=== PATIENT | male | born 1980 | race Hispanic/Latino ===

== ENCOUNTER → 2020-09-24 | Day surgery (SDC) | payer OTHER, SELFPAY ==
[2020-09-21 13:16] LABS: BASOPHILS % 0.4 % (0.0-1.0); EOSINOPHILS # (AUTO) 0.3 (0.0-0.4); EOSINOPHILS % 3.1 % (0.0-6.0); HEMATOCRIT 41.7 % (38.2-49.6); HEMOGLOBIN 13.3 g/dL (14.0-18.0); LYMPHOCYTES # (AUTO) 2.6 (1.0-3.2); LYMPHOCYTES % 30.7 % (18.0-39.1); MEAN CORPUSCULAR HEMOGLOBIN 27.3 pg (28-32); MEAN CORPUSCULAR HGB CONC 31.9 g/dL (31-35); MEAN CORPUSCULAR VOLUME 85.6 fL (81-99); MONOCYTES # (AUTO) 0.9 (0.2-0.8); MONOCYTES % 10.7 % (4.4-11.3); NEUTROPHILS # (AUTO) 4.6 (2.1-6.9); NEUTROPHILS % 54.7 % (38.7-80.0); PLATELET COUNT 340 x10e3/uL (140-360); RED BLOOD COUNT 4.87 x10e6/uL (4.3-5.7); RED CELL DISTRIBUTION WIDTH 14.2 % (11.7-14.4)
[2020-09-21 13:38] LABS: ANION GAP 11.3 mmol/L (8-16); BLOOD UREA NITROGEN 13 mg/dL (7-26); BUN/CREATININE RATIO 15 (6-25); CALCIUM 9.3 mg/dL (8.4-10.2); CARBON DIOXIDE 27 mmol/L (22-29); CHLORIDE 105 mmol/L (98-107); CREATININE, SERUM 0.87 mg/dL (0.72-1.25); EST GLOMERULAR FILTRATION RATE > 60 ML/MIN (60-); GLUCOSE 88 mg/dL (74-118); POTASSIUM 4.3 mmol/L (3.5-5.1); SODIUM 139 mmol/L (136-145)
[~2020-09-24] MED LIST: BUPIVACAINE 0.25% 30ML SDV ONE; CEFAZOLIN SOD 1 GM/NS 50ML 50 ML IV ONE; FENTANYL CITRATE/PF 100MCG/2 ML INJ ONE; HYDROCODONE/APAP 7.5MG-325MG 1 EA TAB ONE
[2020-09-24 14:30] VITALS: BP 116/76
== END | disposition home or self-care (01) ==
LOC: OR 07:02
PROVIDERS: ATTEND Surgery
DX: K40.90 Unilateral inguinal hernia, without obstruction or gangrene, not specified as recurrent (principal); E11.9 Type 2 diabetes mellitus without complications; E78.5 Hyperlipidemia, unspecified; Z01.810 Encounter for preprocedural cardiovascular examination; Z01.812 Encounter for preprocedural laboratory examination; Z20.822 Contact with and (suspected) exposure to COVID-19; Z86.16 Personal history of COVID-19; Z87.891 Personal history of nicotine dependence
CPT/HCPCS: 36415; 49505; 80048; 85025; 93005; C1781; J0690; J3010; U0002